=== PATIENT | male | born 1930 | race Caucasian/White ===

== ENCOUNTER 2016-12-07 20:45 | Inpatient (IN) | payer OTHER ==
[~2016-12-07] VITALS: Ht 172.7 cm; Wt 74.5 kg
[~2016-12-07 20:45] MED LIST: AMLODIPINE BESYL5 MG PO; ARICEPT5 MG PO; ASPIR 8181 M1 PO; ATENOLOL50 MG PO; Aricept PO; COUMADIN5 MG PO; DEPAKOTE125 MG PO; DIVALPROEX SOD125 M1; EFFEXOR XR150 MG PO; FUROSEMIDE40 MG PO; IBUPROFEN; K-Dur PO; KLOR-CON M2020 MEQ PO; Lasix PO; NORVASC5 MG PO; ONE DAILY TABL1 EAC1 PO; SERTRALINE HCL100 MG PO; TENORMIN50 MG PO; VENLAFAXINE HCL75 MG PO; WARFARIN SODIUM5 MG PO
[2016-12-07 21:54] LABS: HEMATOCRIT 37.5 % (38.0-50.0); MCHC 33.3 G/DL (30.0-36.0); MCV 89.9 FL (86-99); MEAN PLAT.VOLUME 10.2 uM^3 (9.0-12.4); PLATELET COUNT 219 K/uL (156-360); RBC DIS.WIDTH-CV 13.2 % (11.8-14.6); RBC DIS.WIDTH-SD 43.8 % (39-53); RED BLOOD COUNT 4.17 M/uL (4.00-5.50); WHITE BLOOD COUNT 14.5 K/uL (4.1-10.2)
[2016-12-07 22:14] LABS: CHLORIDE 100 mEq/L (99-109); POTASSIUM 4.3 mEq/L (3.7-5.4); SODIUM 137 mEq/L (136-147)
[2016-12-07 22:16] LABS: GLUCOSE 180 mg/dL (70-99)
[2016-12-07 22:17] LABS: ANION GAP 16 MEQ/L (2-14)
[2016-12-07 22:18] LABS: TOTAL BILIRUBIN 0.5 mg/dL (0.0-1.0)
[2016-12-07 22:19] LABS: ALKALINE PHOSPHATASE 99 IU/L (3-129)
[2016-12-07 22:20] LABS: GFR ESTIMATE (CALCULATED) 30 mL/min/
[2016-12-07 22:21] LABS: UREA NITROGEN (BUN) 44 mg/dL (9-23)
[2016-12-07 22:23] LABS: LIPASE 132 U/L (1.0-51.0)
[2016-12-07 23:19] LABS: EOSINOPHIL (%) 0.1 % (0-5); IMMATURE GRANULOCYTE (%) 0.5 % (0.0-0.7); IMMATURE GRANULOCYTE COUNT 0.1 K/uL; INSTRUMENT ABS NEUTROPHIL CT 13.4 K/uL; LYMPHOCYTE COUNT 0.4 K/uL (1.0-2.8); MONOCYTE (%) 2.9 % (3-12); MONOCYTE COUNT 0.4 K/uL (0-0.8); NEUTROPHIL (%) 93.6 % (45-76); NEUTROPHIL COUNT 13.4 K/uL (1.8-6.4)
[2016-12-07 23:27] LABS: ADD MIUA? YES; BILIRUBIN NEGATIVE; BLOOD SMALL; COLOR YELLOW ((YELLOW)); GLUCOSE (STRIP) NEGATIVE; KETONES 5; LEUKOCYTES NEGATIVE; NITRITE NEGATIVE; PROTEIN (STRIP) 100; SPECIFIC GRAVITY 1.017 (1.000-1.030); UROBILINOGEN 0.2 MG/DL (0.2-1.0)
[2016-12-07 23:33] LABS: BACTERIA NONE SEEN /HPF; EPITHELIAL CELLS NONE SEEN /HPF; MUCUS TRACE /LPF; RED BLOOD CELLS 0-5 /HPF (0-5); UCUL ADDED? NO; WHITE BLOOD CELLS 0-5 /HPF (0-5)
[2016-12-08 02:30] LABS: HEMATOCRIT 37.3 % (38.0-50.0); MCV 90.8 FL (86-99)
[2016-12-08 02:45] VITALS: BP 129/63
[2016-12-08 02:49] LABS: TROP-I INTERPRETATION NEGATIVE; TROPONIN-I < 0.01 ng/mL (0.0-0.30)
[2016-12-08] MEDS ORDERED: AMLODIPINE BESY10 MG PO (03:40)
[2016-12-08 03:43] LABS: POINT-OF-CARE METER ID UU13113831
[2016-12-08 06:41] LABS: EOSINOPHIL (%) 0 % (0-5); HEMATOCRIT 37.3 % (38.0-50.0); IMMATURE GRANULOCYTE (%) 0.9 % (0.0-0.7); IMMATURE GRANULOCYTE COUNT 0.3 K/uL; INSTRUMENT ABS NEUTROPHIL CT 25.8 K/uL; LYMPHOCYTE COUNT 0.3 K/uL (1.0-2.8); MCHC 32.4 G/DL (30.0-36.0); MCV 92.6 FL (86-99); MEAN PLAT.VOLUME 9.9 uM^3 (9.0-12.4); MONOCYTE (%) 3.3 % (3-12); MONOCYTE COUNT 0.9 K/uL (0-0.8); NEUTROPHIL (%) 94.6 % (45-76); NEUTROPHIL COUNT 25.8 K/uL (1.8-6.4); PLATELET COUNT 245 K/uL (156-360); RBC DIS.WIDTH-CV 13.5 % (11.8-14.6); RBC DIS.WIDTH-SD 45.9 % (39-53); RED BLOOD COUNT 4.03 M/uL (4.00-5.50); WHITE BLOOD COUNT 27.3 K/uL (4.1-10.2)
[2016-12-08 06:53] LABS: POINT-OF-CARE METER ID UU13113831
[2016-12-08 07:06] LABS: ALKALINE PHOSPHATASE 79 IU/L (3-129); ANION GAP 15 MEQ/L (2-14); CHLORIDE 101 MEQ/L (99-109); GFR ESTIMATE (CALCULATED) 32 mL/min/; GLUCOSE 225 mg/dL (70-99); POTASSIUM 4.5 MEQ/L (3.7-5.4); SAMPLE HEMOLYSIS CHECK 0; SAMPLE ICTERIC CHECK 0; SAMPLE LIPEMIA CHECK 0; SODIUM 136 MEQ/L (136-147); TOTAL BILIRUBIN 0.6 MG/DL (0.0-1.0); UREA NITROGEN (BUN) 45 mg/dL (9-23)
[2016-12-08 07:43] LABS: AMYLASE 113 IU/L (1-118); LIPASE 79 U/L (1.0-51.0)
[2016-12-08 08:32] VITALS: BP 149/76
[2016-12-08 10:09] LABS: INTER. NORMALIZED RATIO 2.8; PROTHROMBIN TIME 29.1 (9.2-11.2)
[2016-12-08 12:05] VITALS: BP 138/60
[2016-12-08 12:47] LABS: BASE EXCESS -5.9 mEq/L (-3 to +3); BICARBONATE 20.2 mEq/L (22-26); CARBOXY HGB 2.1 % (0-5); COMMENTS - BLOOD GASES C+; DEVICE NCH; METHEMOGLOBIN 1.9 % (0-1.5); O2 FLOW 15 L/MIN; PCO2 41 mm Hg (35-45); PO2 62 mm Hg (80-100); SITE RB; TOTAL RESP RATE 18 resp/min
[2016-12-08 14:26] LABS: HEMATOCRIT 37.5 % (38.0-50.0); MCH 31.3 PG (29.0-34.0); MCHC 33.3 G/DL (30.0-36.0); MCV 93.8 FL (86-99); PLATELET COUNT 253 K/uL (156-360); RBC DIS.WIDTH-CV 13.9 % (11.8-14.6); RBC DIS.WIDTH-SD 47.1 % (39-53); WHITE BLOOD COUNT 25.2 K/uL (4.1-10.2)
[2016-12-08 14:51] LABS: ANION GAP 13 MEQ/L (2-14); CHLORIDE 103 MEQ/L (99-109); GFR ESTIMATE (CALCULATED) 32 mL/min/; GLUCOSE 171 mg/dL (70-99); SAMPLE HEMOLYSIS CHECK 0; SAMPLE ICTERIC CHECK 0; SAMPLE LIPEMIA CHECK 0; SODIUM 136 MEQ/L (136-147); UREA NITROGEN (BUN) 51 mg/dL (9-23)
[2016-12-08 15:16] LABS: TROP-I INTERPRETATION NEGATIVE; TROPONIN-I 0.02 ng/mL (0.0-0.30)
[2016-12-08 15:46] VITALS: BP 122/63
[2016-12-08 21:31] LABS: POINT-OF-CARE METER ID UU13113725
[2016-12-08 23:12] VITALS: BP 141/79
[2016-12-09 02:05] LABS: POINT-OF-CARE METER ID UU13113725
[2016-12-09 05:54] LABS: POINT-OF-CARE METER ID UU13113725
[2016-12-09 06:00] LABS: HEMATOCRIT 35.6 % (38.0-50.0); MCHC 32.9 G/DL (30.0-36.0); MCV 94.4 FL (86-99); MEAN PLAT.VOLUME 10.4 uM^3 (9.0-12.4); PLATELET COUNT 207 K/uL (156-360); RBC DIS.WIDTH-CV 14.1 % (11.8-14.6); RBC DIS.WIDTH-SD 48.6 % (39-53); RED BLOOD COUNT 3.77 M/uL (4.00-5.50); WHITE BLOOD COUNT 23.1 K/uL (4.1-10.2)
[2016-12-09 06:22] LABS: ALKALINE PHOSPHATASE 68 IU/L (3-129); ANION GAP 12 MEQ/L (2-14); CHLORIDE 107 MEQ/L (99-109); GFR ESTIMATE (CALCULATED) 20 mL/min/; GLUCOSE 125 mg/dL (70-99); LIPASE 113 U/L (1.0-51.0); POTASSIUM 5.5 MEQ/L (3.7-5.4); SAMPLE HEMOLYSIS CHECK 0; SAMPLE ICTERIC CHECK 0; SAMPLE LIPEMIA CHECK 0; SODIUM 140 MEQ/L (136-147); TOTAL BILIRUBIN 0.7 MG/DL (0.0-1.0); UREA NITROGEN (BUN) 61 mg/dL (9-23)
[2016-12-09 06:53] LABS: PROTHROMBIN TIME 64.7 (9.2-11.2)
[2016-12-09 07:54] VITALS: BP 118/66
[2016-12-09 11:22] VITALS: BP 118/60
[2016-12-09 16:07] VITALS: BP 135/60
[2016-12-09 22:39] VITALS: BP 129/82
[2016-12-10 02:52] VITALS: BP 149/70
[2016-12-10 06:53] LABS: HEMATOCRIT 35.8 % (38.0-50.0); MCH 30.6 PG (29.0-34.0); MCHC 32.1 G/DL (30.0-36.0); MCV 95.2 FL (86-99); MEAN PLAT.VOLUME 10.8 uM^3 (9.0-12.4); PLATELET COUNT 222 K/uL (156-360); RBC DIS.WIDTH-CV 14.5 % (11.8-14.6); RBC DIS.WIDTH-SD 50.4 % (39-53); RED BLOOD COUNT 3.76 M/uL (4.00-5.50); WHITE BLOOD COUNT 20.6 K/uL (4.1-10.2)
[2016-12-10 07:19] LABS: ANION GAP 16 MEQ/L (2-14); CHLORIDE 109 MEQ/L (99-109); GFR ESTIMATE (CALCULATED) 16 mL/min/; GLUCOSE 122 mg/dL (70-99); POTASSIUM 5.4 MEQ/L (3.7-5.4); SAMPLE HEMOLYSIS CHECK 0; SAMPLE ICTERIC CHECK 0; SAMPLE LIPEMIA CHECK 0; SODIUM 143 MEQ/L (136-147); UREA NITROGEN (BUN) 80 mg/dL (9-23)
[2016-12-10 07:43] LABS: ABS NEUTROPHIL COUNT 18.6; ANISOCYTOSIS 1+; ATYPICAL LYMPHOCYTE 0.4 %; BAND NEUTROPHILS 12.2 % (0-8.0); EOSINOPHIL ABS CT 0; INSTRUMENT ABS NEUTROPHIL CT 17.5 K/uL; LYMPHOCYTES 1.8 % (15.0-45.0); MACROCYTES 1+; PLAT.SUFFICIENCY ADEQUATE; POIKILOCYTOSIS 3+; SEG.NEUTROPHILS 78.2 % (46.0-76.0)
[2016-12-10 09:38] LABS: INTER. NORMALIZED RATIO 3.8; PROTHROMBIN TIME 39.9 (9.2-11.2)
[2016-12-11 06:08] VITALS: BP 0/0
== END 2016-12-11 15:21 | DRG 326 ==
LOC: RME 20:45 → EME 20:45 → EDOF 12-08 01:55 → 5WEST 12-08 02:38 → 5EAST 12-08 05:15 → 5WEST 12-08 05:15 → 5EAST 12-08 11:20
PROVIDERS: Hospitalist; Internal Medicine Gastroenterology; Nurse Practitioner Adult Health; Physician Assistant; Student in an Organized Health Care Education/Training Program; Surgery
PROC: 0D968ZZ Drainage of Stomach, Via Natural or Artificial Opening Endoscopic (ICD-10-PCS; principal; 2016-12-08)
DX: R10.13 Epigastric pain (principal); K92.0 Hematemesis; K85.90 Acute pancreatitis without necrosis or infection, unspecified; K25.9 Gastric ulcer, unspecified as acute or chronic, without hemorrhage or perforation; K26.9 Duodenal ulcer, unspecified as acute or chronic, without hemorrhage or perforation; K80.10 Calculus of gallbladder with chronic cholecystitis without obstruction; K59.00 Constipation, unspecified; J96.01 Acute respiratory failure with hypoxia; N17.9 Acute kidney failure, unspecified; E87.5 Hyperkalemia; G93.40 Encephalopathy, unspecified; I13.0 Hypertensive heart and chronic kidney disease with heart failure and stage 1 through stage 4 chronic kidney disease, or unspecified chronic kidney disease; N18.4 Chronic kidney disease, stage 4 (severe); I50.23 Acute on chronic systolic (congestive) heart failure; D64.9 Anemia, unspecified; Z51.5 Encounter for palliative care; I45.2 Bifascicular block; G25.3 Myoclonus; I48.1 Persistent atrial fibrillation; I48.2 Chronic atrial fibrillation; I42.9 Cardiomyopathy, unspecified; R42 Dizziness and giddiness; E78.5 Hyperlipidemia, unspecified; I25.10 Atherosclerotic heart disease of native coronary artery without angina pectoris; G30.9 Alzheimer's disease, unspecified; F02.80 Dementia in other diseases classified elsewhere, unspecified severity, without behavioral disturbance, psychotic disturbance, mood disturbance, and anxiety; R19.7 Diarrhea, unspecified; R32 Unspecified urinary incontinence; Z66 Do not resuscitate; F43.10 Post-traumatic stress disorder, unspecified; F41.9 Anxiety disorder, unspecified; F32.9 Major depressive disorder, single episode, unspecified; Z79.01 Long term (current) use of anticoagulants; I25.2 Old myocardial infarction; Z82.49 Family history of ischemic heart disease and other diseases of the circulatory system; Z86.73 Personal history of transient ischemic attack (TIA), and cerebral infarction without residual deficits; Z95.0 Presence of cardiac pacemaker; Z95.1 Presence of aortocoronary bypass graft
CPT/HCPCS: 36415; 36600; 71010; 74176; 76705; 76770; 80048; 80048 91; 80053; 81003; 82150; 82272; 82803; 82948; 83605; 83690; 83880; 84484; 85014; 85018; 85025; 85027; 85610; 86140; 87040; 93005; 94760; 94799; 99281; 99285; C9113; J0456; J1170; J1940; J2060; J2270; J2405; J2543; J3010; J3430; J7030; J7050

== ENCOUNTER 2016-12-11 15:42 | Inpatient (IN) | payer OTHER ==
[~2016-12-11 15:42] MED LIST changes: +AMLODIPINE BESY10 MG PO
[2016-12-11 23:45] VITALS: BP 000/00
== END 2016-12-12 00:35 | DRG 189 ==
LOC: 5EAST 15:42
DX: J96.01 Acute respiratory failure with hypoxia (principal); N17.9 Acute kidney failure, unspecified; K92.0 Hematemesis; D68.9 Coagulation defect, unspecified; K25.9 Gastric ulcer, unspecified as acute or chronic, without hemorrhage or perforation; I25.10 Atherosclerotic heart disease of native coronary artery without angina pectoris; Z51.5 Encounter for palliative care; I48.91 Unspecified atrial fibrillation; F03.90 Unspecified dementia, unspecified severity, without behavioral disturbance, psychotic disturbance, mood disturbance, and anxiety; E78.5 Hyperlipidemia, unspecified; I10 Essential (primary) hypertension; Z95.0 Presence of cardiac pacemaker; Z79.899 Other long term (current) drug therapy; Z79.01 Long term (current) use of anticoagulants
CPT/HCPCS: J2060; J2270